=== PATIENT | female | born 2000 | race Two or more races ===

== ENCOUNTER 2021-01-05 18:12 | Emergency (ER) | payer SELFPAY ==
[~2021-01-05] VITALS: Ht 165.1 cm; Wt 63.5 kg
[2021-01-05 18:14] VITALS: BP 146/78
== END 2021-01-05 18:34 | disposition left against medical advice (07) ==
LOC: ER 18:13
DX: S49.91XA Unspecified injury of right shoulder and upper arm, initial encounter (principal); Z53.29 Procedure and treatment not carried out because of patient's decision for other reasons; X58.XXXA Exposure to other specified factors, initial encounter; Y93.89 Activity, other specified; Y92.89 Other specified places as the place of occurrence of the external cause; Y99.8 Other external cause status